=== PATIENT | male | born 1965 | race African-American/Black ===

== ENCOUNTER 2018-10-03 15:57 | Inpatient (IN) | payer OTHER ==
[~2018-10-03] VITALS: Ht 180.3 cm; Wt 111.6 kg
[2018-10-03 16:03] VITALS: BP 138/95
[2018-10-03] MEDS ORDERED: NOHOMEMEDICATIONS (16:07)
[2018-10-03 17:20] LABS: ABSOLUTE BASOPHILS 0.1 thou/uL (0.0-0.2); ABSOLUTE LYMPHOCYTES 0.9 thou/uL (0.8-5.3); ABSOLUTE MONOCYTES 0.5 thou/uL (0.0-1.2); ABSOLUTE NEUTROPHILS 3.4 thou/uL (1.6-8.1); BASOPHILS 1.3 %; EOSINOPHILS 0.9 %; HEMATOCRIT 40.7 % (42.0-52.0); HEMOGLOBIN 13.1 gm/dL (14.0-18.0); LYMPHOCYTES 19.2 %; MCH 24.5 pg (26.0-34.0); MCHC 32.3 g/dL (28.0-37.0); MCV 75.9 fL (80.0-100.0); MONOCYTES 10.2 %; MPV 9.4 fl. (7.2-11.1); NUCLEATED RBCS 0 /100WBC; PLATELET COUNT* 250 thou/uL (150-400); POLYS 68.4 %; RBC 5.36 mil/uL (4.50-6.00); WBC 4.9 thou/uL (4.0-11.0)
[2018-10-03 17:25] LABS: CALCIUM 8.7 mg/dL (8.5-10.1); CREATININE 1.2 mg/dL (0.6-1.3); POTASSIUM 4.3 mmol/L (3.5-5.1)
[2018-10-03 17:32] LABS: ALBUMIN 3.6 g/dL (3.4-5.0); TOTAL BILIRUBIN 0.7 mg/dL (<0.1-1.0); TOTAL PROTEIN 7.7 g/dL (6.4-8.2)
[2018-10-03 18:30] LABS: ESR (SEDRATE) 23 mm/hr (0-20)
[2018-10-03 20:00] LABS: APTT 27.4 Seconds (25.0-31.3); INR 1.1; PROTIME 11.4 Seconds (9.20-11.50)
[2018-10-03 22:23] VITALS: BP 144/85
[2018-10-03 22:30] VITALS: BP 156/95
[2018-10-04 05:04] LABS: ABSOLUTE EOSINOPHILS 0.1 thou/uL (0.0-0.7); ABSOLUTE LYMPHOCYTES 1.3 thou/uL (0.8-5.3); ABSOLUTE MONOCYTES 0.4 thou/uL (0.0-1.2); BASOPHILS 0.9 %; EOSINOPHILS 1.9 %; HEMATOCRIT 37.6 % (42.0-52.0); HEMOGLOBIN 12.2 gm/dL (14.0-18.0); LYMPHOCYTES 27.2 %; MCH 24.7 pg (26.0-34.0); MCHC 32.4 g/dL (28.0-37.0); MCV 76.3 fL (80.0-100.0); MONOCYTES 9.1 %; MPV 9.7 fl. (7.2-11.1); NUCLEATED RBCS 0 /100WBC; PLATELET COUNT* 226 thou/uL (150-400); POLYS 60.9 %; RBC 4.93 mil/uL (4.50-6.00); RDW-CV 17.2 % (10.5-14.5); WBC 4.9 thou/uL (4.0-11.0)
--- NOTE | 2018-10-04 05:07 | NUR ---
PT ARRIVED FROM THE ER AT 2230, ALERT AND ORIENTED. VITALS STABLE RA. PAIN CONTROLLED WITH FENTANYL. ADMISSION HISTORY/ ASSESSMENT COMPLETED. RT LEG KEEP ELEVATED ORDERED. ICE PACK GIVEN. PT SLEEPING THROUGH THE NIGHT. FLUID RUNNING ORDERED. HOURLY ROUNDING COMPLETED. WILL CONTINUE TO MONITOR.
[2018-10-04 07:20] VITALS: BP 140/99
[2018-10-04 09:30] VITALS: BP 140/99
[2018-10-04 16:00] VITALS: BP 133/66
--- NOTE | 2018-10-04 17:24 | NUR ---
pt remained alert and oriented. pt resting in room. pt on bedrest. rt knee aspirated today and wrapped with cotton cast and manju. npo after midnight. pt denied any pain at this time. surgery tomorrow at 0900. fall risk precautions in place. hourly rounding completed. will continue to monitor.
[2018-10-04 20:00] VITALS: BP 145/97
[2018-10-05] VITALS: BP 146/98
--- NOTE | 2018-10-05 04:39 | NUR ---
VITALS STABLE. TORADOL GIVEN FOR PAIN. IV FLUID GIVEN ORDERED. RT KNEE DRESSING C/D/I. LEG ELEVATED ON PILLOW. NPO AT MIDNIGHT. HOURLY ROUNDING COMPLETED. WILL CONTINUE TO MONITOR.
[2018-10-05 07:15] VITALS: BP 146/96
[2018-10-05 09:32] VITALS: BP 140/99
[2018-10-05] MEDS ORDERED: KEFLEX500 M1 PO (11:22)
[2018-10-05] MEDS ORDERED: NORCO 5-325 TA1 EAC1 PO (11:23)
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
[2018-10-05 12:25] VITALS: BP 140/99
== END 2018-10-05 12:26 | disposition home or self-care (01) | DRG 566 ==
LOC: M.ERS 15:57 → M.TBA-ER 21:28 → M.ORTHSURG 22:30
PROVIDERS: Nurse Practitioner Family; ADMIT Internal Medicine
PROC: 0S9C3ZZ Drainage of Right Knee Joint, Percutaneous Approach (ICD-10-PCS; principal; 2018-10-04)
DX: M25.461 Effusion, right knee (principal); S80.01XA Contusion of right knee, initial encounter; X50.1XXA Overexertion from prolonged static or awkward postures, initial encounter; Y93.89 Activity, other specified; Y92.89 Other specified places as the place of occurrence of the external cause; Y99.8 Other external cause status